=== PATIENT | male | born 1940 | race Caucasian/White ===

== ENCOUNTER 2022-03-05 10:28 | Outpatient (CLI) | payer MEDICARE, BC ==
[~2022-03-05 10:28] MED LIST: Iopamidol 370 76% 100 ML VIAL ONE
== END 2022-03-05 10:29 | disposition home or self-care (01) ==
LOC: CSHCT 10:28
PROVIDERS: ATTEND Internal Medicine Cardiovascular Disease
DX: Z01.810 Encounter for preprocedural cardiovascular examination (principal); I48.0 Paroxysmal atrial fibrillation; Z98.890 Other specified postprocedural states; Z86.79 Personal history of other diseases of the circulatory system; Z79.01 Long term (current) use of anticoagulants; Z95.1 Presence of aortocoronary bypass graft; I25.10 Atherosclerotic heart disease of native coronary artery without angina pectoris; K86.9 Disease of pancreas, unspecified
CPT/HCPCS: 71275; 82565; Q9967